=== PATIENT | male | born 1955 | race African-American/Black ===

== ENCOUNTER 2021-09-03 11:18 | Inpatient (IN) | payer OTHER ==
[2021-09-03] MEDS ORDERED: MAG HYDROX/AL HYDROX/SIMETH 30 ML UNIT-DOSE CUP PO PRN (12:11)
[2021-09-03] MEDS ORDERED: MENTHOL/PHENOL 1 EACH UD MM PRN (12:11)
[2021-09-03] MEDS ORDERED: IBUPROFEN 400 MG TABLET (FP) PO PRN (12:11)
[2021-09-03] MEDS ORDERED: diazePAM 5 MG TABLET PO PRN (12:11)
[2021-09-03] MEDS ORDERED: NICOTINE 10 MG CARTRIDGE (INHALER) IH PRN (12:11)
[2021-09-03] MEDS ORDERED: LOPERAMIDE HCL 2 MG CAPSULE PO PRN (12:11)
[2021-09-03] MEDS ORDERED: ONDANSETRON *ODT* 4 MG TABLET SL PRN (12:11)
[2021-09-03] MEDS ORDERED: ACETAMINOPHEN 325 MG TABLET (FP) PO PRN ×2 (12:11)
[2021-09-03] MEDS ORDERED: MAGNESIUM CITRATE 300 ML BOTTLE PO PRN (12:11)
[2021-09-03] MEDS ORDERED: MAGNESIUM HYDROX 2400MG/30ML ORAL SUSPENSION 30 ML CUP PO PRN (12:11)
[2021-09-03] MEDS ORDERED: BISMUTH SUBSALICYLATE 262 MG/15 ML BTL PO PRN (12:11)
[2021-09-03 15:23] VITALS: BMI 24.6
[2021-09-03 17:16] LABS: CALCIUM 8.8 mg/dL (8.5-10.1)
[2021-09-03 17:17] LABS: ALBUMIN 4.1 g/dl (3.4-5.0); BLOOD UREA NITROGEN 9.8 mg/dL (7-18); HEMATOCRIT 43.1 % (35.4-49); HEMOGLOBIN 14.7 GM/dL (11.7-16.9); MCH 32.8 pg (25.7-33.7); MCHC 34.1 g/dl (32.0-35.9); MEAN CELL VOLUME 96.3 fl (80-96); MEAN PLT VOLUME 9.9 fl (7.5-11.1); RBC 4.47 M/mm3 (4.00-5.60); RDW 18.5 % (11.9-15.9); WHITE BLOOD COUNT 4.3 K/mm3 (4.0-10.0)
[2021-09-03 17:20] LABS: CREATININE 1.2 mg/dL (0.55-1.3)
[2021-09-03 17:22] LABS: BILIRUBIN,TOTAL 0.6 mg/dL (0.2-1); TOT PROT 7.6 g/dl (6.4-8.2)
[2021-09-03] MEDS: diazePAM 5 MG TABLET PO SCH ×3 (17:24→23:00)
[2021-09-03] MEDS: NICOTINE 14 MG/24 HOURS TOPICAL PATCH TD SCH (17:25)
[2021-09-03] MEDS: PRENATAL VITAMINS W/ FOLIC ACID TABLET (FP) PO SCH (17:25)
[2021-09-03] MEDS: hydrOXYzine PAMOATE 25 MG CAPSULE (FP) PO PRN (17:26)
[2021-09-03 17:41] LABS: PLATELET COUNT 127 10^3/uL (134-434)
[2021-09-03] MEDS ORDERED: cloNIDine HCL 0.1 MG TABLET PO ONE ×2 (17:41→23:23)
[2021-09-03] MEDS ORDERED: PATIENT'S OWN MEDICATION (NON-FORMULARY) (Lisinopril [Zestril] 40 MG Tablet) PO SCH (18:00)
[2021-09-03] MEDS ORDERED: ALBUTEROL SO4 HFA INHALER IH SCH (18:00)
[2021-09-03] MEDS: INSULIN SLIDING SCALE (NOVOLOG) 1 VIAL SQ SCH (18:11)
[2021-09-03] MEDS: MELATONIN 5 MG TABLETS PO SCH (23:04)
[2021-09-03] MEDS: ATORVASTATIN CA 40 MG TABLET (FP) PO SCH (23:05)
[2021-09-03] MEDS: THIAMINE HCL 100 MG TABLET (FP) PO SCH (23:05)
[2021-09-04] MEDS: diazePAM 5 MG TABLET PO SCH ×4 (05:26→22:26)
[2021-09-04] MEDS: INSULIN SLIDING SCALE (NOVOLOG) 1 VIAL SQ SCH ×2 (07:56→17:11)
[2021-09-04] MEDS: PRENATAL VITAMINS W/ FOLIC ACID TABLET (FP) PO SCH (10:30)
[2021-09-04] MEDS: PATIENT'S OWN MEDICATION (NON-FORMULARY) (Sitagliptin Phos/Metformin Hcl [Janumet 50-500 M PO SCH (10:31)
[2021-09-04] MEDS: NICOTINE 14 MG/24 HOURS TOPICAL PATCH TD SCH (10:31)
[2021-09-04] MEDS: ASPIRIN COATED 81 MG TABLET.EC PO SCH (10:31)
[2021-09-04] MEDS: LISINOPRIL 20 MG TABLET PO SCH (10:31)
[2021-09-04] MEDS: hydrOXYzine PAMOATE 25 MG CAPSULE (FP) PO PRN ×2 (18:09→22:25)
[2021-09-04] MEDS: MELATONIN 5 MG TABLETS PO SCH (22:25)
[2021-09-04] MEDS: THIAMINE HCL 100 MG TABLET (FP) PO SCH (22:25)
[2021-09-04] MEDS: ATORVASTATIN CA 40 MG TABLET (FP) PO SCH (22:25)
[2021-09-04] MEDS: METHOCARBAMOL 500 MG TABLET PO PRN (22:26)
[2021-09-05] MEDS: diazePAM 5 MG TABLET PO SCH ×3 (05:44→22:45)
[2021-09-05] MEDS: INSULIN SLIDING SCALE (NOVOLOG) 1 VIAL SQ SCH (06:20)
[2021-09-05 10:09] LABS: SARS-CoV-2 NAA Not Detected (Not Detected)
[2021-09-05] MEDS: LISINOPRIL 20 MG TABLET PO SCH (10:25)
[2021-09-05] MEDS: ASPIRIN COATED 81 MG TABLET.EC PO SCH (10:25)
[2021-09-05] MEDS: PRENATAL VITAMINS W/ FOLIC ACID TABLET (FP) PO SCH (10:25)
[2021-09-05] MEDS: NICOTINE 14 MG/24 HOURS TOPICAL PATCH TD SCH (10:26)
[2021-09-05] MEDS ORDERED: ALBUTEROL SO4 HFA INHALER IH PRN (11:13)
[2021-09-05] MEDS ORDERED: cloNIDine HCL 0.1 MG TABLET PO ONE ×3 (13:13→22:13)
[2021-09-05] MEDS: PATIENT'S OWN MEDICATION (NON-FORMULARY) (Sitagliptin Phos/Metformin Hcl [Janumet 50-500 M PO SCH (15:06)
[2021-09-05] MEDS: hydrOXYzine PAMOATE 25 MG CAPSULE (FP) PO PRN (22:45)
[2021-09-05] MEDS: ATORVASTATIN CA 40 MG TABLET (FP) PO SCH (22:45)
[2021-09-05] MEDS: THIAMINE HCL 100 MG TABLET (FP) PO SCH (22:46)
[2021-09-05] MEDS: METHOCARBAMOL 500 MG TABLET PO PRN (22:46)
[2021-09-05] MEDS: MELATONIN 5 MG TABLETS PO SCH (22:48)
[2021-09-06] MEDS: diazePAM 5 MG TABLET PO SCH ×2 (06:15→17:50)
[2021-09-06] MEDS: LISINOPRIL 20 MG TABLET PO SCH (10:21)
[2021-09-06] MEDS: PRENATAL VITAMINS W/ FOLIC ACID TABLET (FP) PO SCH (10:21)
[2021-09-06] MEDS: ASPIRIN COATED 81 MG TABLET.EC PO SCH (10:22)
[2021-09-06] MEDS: NICOTINE 14 MG/24 HOURS TOPICAL PATCH TD SCH (10:22)
[2021-09-06] MEDS: hydrOXYzine PAMOATE 25 MG CAPSULE (FP) PO PRN (17:50)
[2021-09-06] MEDS ORDERED: METOPROLOL TARTRATE 25 MG TABLET (FP) PO ONE (17:57)
[2021-09-06] MEDS ORDERED: METOPROLOL TARTRATE 50 MG TABLET (FP) PO ONE (21:36)
[2021-09-06] MEDS: ATORVASTATIN CA 40 MG TABLET (FP) PO SCH (22:09)
[2021-09-06] MEDS: MELATONIN 5 MG TABLETS PO SCH (22:09)
[2021-09-06] MEDS: THIAMINE HCL 100 MG TABLET (FP) PO SCH (22:09)
[2021-09-07] MEDS: hydrOXYzine PAMOATE 25 MG CAPSULE (FP) PO PRN (05:44)
[2021-09-07] MEDS ORDERED: diazePAM 5 MG TABLET PO ONE (06:00)
[2021-09-07] MEDS: NICOTINE 14 MG/24 HOURS TOPICAL PATCH TD SCH (09:11)
[2021-09-07] MEDS: ASPIRIN COATED 81 MG TABLET.EC PO SCH (09:11)
[2021-09-07] MEDS: PRENATAL VITAMINS W/ FOLIC ACID TABLET (FP) PO SCH (09:11)
[2021-09-07] MEDS: LISINOPRIL 20 MG TABLET PO SCH (09:11)
[2021-09-07 09:41] VITALS: BP 155/99; PULSE 90; TEMP 97.3
== END 2021-09-07 09:18 | disposition home or self-care (01) | DRG 897 ==
LOC: YASAS 11:18 → Y3N 14:55
PROVIDERS: ADMIT Allergy & Immunology; ATTEND Allergy & Immunology
PROC: HZ2ZZZZ Detoxification Services for Substance Abuse Treatment (ICD-10-PCS; principal; 2021-09-03)
DX: F10.230 Alcohol dependence with withdrawal, uncomplicated (principal); F17.210 Nicotine dependence, cigarettes, uncomplicated; E78.5 Hyperlipidemia, unspecified; J45.909 Unspecified asthma, uncomplicated; A53.0 Latent syphilis, unspecified as early or late; N28.9 Disorder of kidney and ureter, unspecified; I10 Essential (primary) hypertension; E11.9 Type 2 diabetes mellitus without complications; Z79.84 Long term (current) use of oral hypoglycemic drugs; Z86.19 Personal history of other infectious and parasitic diseases; Z99.89 Dependence on other enabling machines and devices
CPT/HCPCS: 36415; 80053; 82947; 85027; 86593; 86780; 93005; 93010; C9803; J0735; U0003; U0005

== ENCOUNTER 2021-11-01 13:39 | Emergency (ER) | payer OTHER ==
[2021-11-01 13:52] VITALS: BP 140/98; PULSE 107; TEMP 98; BMI 27.3
== END 2021-11-01 15:43 | disposition home or self-care (01) ==
LOC: JER 13:39
DX: F10.20 Alcohol dependence, uncomplicated (principal)
CPT/HCPCS: 99283-25